=== PATIENT | female | born 1970 | race Caucasian/White ===

== ENCOUNTER 2020-10-04 23:12 | Emergency (ER) | payer BC ==
--- OUTSIDE RECORDS SUMMARY | 2020-10-04 23:15 | XMS REPORT | Continuity of Care Document ---
:1970 Author Organization Formerly [facility] Address [address] [place] [address] [address]. [address] [place] [address] Care Team Providers Name Role Phone Unavailable Unavailable Unavailable Problems This patient has no known problems. Allergies, Adverse Reactions, Alerts This patient has no known allergies or adverse reactions. Medications This patient has no known medications. Procedures This patient has no known procedures. Results This patient has no known results.
[2020-10-05] MEDS ORDERED: CEPHALEXIN 250 MG CAP ONE (00:27)
[2020-10-05] MEDS ORDERED: MUPIROCIN 2% OINT 22GM TUBE TOP ONE (00:27)
[2020-10-05] MEDS ORDERED: TETANUS & DIPHTHERIA TOX,ADULT 0.5 ML VIAL ONE (00:27)
--- NOTE | 2020-10-05 01:02 | ER ---
Nurse's Notes [facility] Name: Allyson Dailey Age: 49 yrs Sex: Female : 1970 Arrival Date: 10/04/2020 Time: 23:15 Bed 23 Private MD: Diagnosis: Syncope and collapse-NEAR;Puncture wound without foreign body of left wrist;Pain in left wrist Presentation: 10/04 23:23 Chief complaint: Spouse and/or significant other states: pt injured her wrist today and bb has passed out x 3 since then pt is diaphoretic and pale in triage spouse states he literally had to slap her to get her up to come into the ED. Coronavirus screen: At this time, the client does not indicate any symptoms associated with coronavirus-19. Ebola Screen: No symptoms or risks identified at this time. Initial Sepsis Screen: Does the patient meet any 2 criteria? No. Patient's initial sepsis screen is negative. Does the patient have a suspected source of infection? No. Patient's initial sepsis screen is negative. Risk Assessment: Do you want to hurt yourself or someone else? Patient reports no desire to harm self or others. Onset of symptoms was October 04, 2020. 23:23 Method Of Arrival: Wheelchair bb 23:23 Acuity: DOREEN 3 bb Triage Assessment: 23:26 General: Appears ill, Behavior is listless. Pain: Denies pain. Neuro: Level of bb Consciousness is awake, obeys commands, listless, Oriented to person, place, situation. Cardiovascular: No deficits noted. Respiratory: Respiratory effort is even, unlabored, Respiratory pattern is regular. GI: No signs and/or symptoms were reported involving the gastrointestinal system. Musculoskeletal: Circulation, motion, and sensation intact. 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 - Social history:: Smoking status: Patient denies any tobacco usage or history of. - Family history:: not pertinent. Screenin:30 Abuse screen: Denies threats or abuse. Nutritional screening: No deficits noted. bb Tuberculosis screening: No symptoms or risk factors identified. Fall Risk None identified. Assessment: 23:30 Reassessment: No changes from previously documented assessment. see triage assessment. bb 10/05 00:38 Reassessment: Patient is alert, oriented x 3, equal unlabored respirations, skin bb warm/dry/pink. Patient states feeling better. 01:45 Reassessment: Patient is alert, oriented x 3, equal unlabored respirations, skin bb warm/dry/pink. splint to left wrist in place. Pt states she is feeling better pt and family verbalized understanding of and agree to plan of care discharge instructions given pt assisted to exit via wheelchair by this RN. Vital Signs: 10/04 23:23 BP 118 / 72; Pulse 85; Resp 16 S; Temp 98.5(O); Pulse Ox 94% on R/A; Weight 86.18 kg bb (R); Height 5 ft. 6 in. (167.64 cm) (R); Pain 0/10; 10/05 01:12 BP 119 / 74 RA Supine (auto/lg); Pulse 92; Pulse Ox 97% ; ds4 01:15 BP 116 / 73 RA Sitting (auto/lg); Pulse 88; Pulse Ox 98% ; ds4 01:18 BP 129 / 81 RA Standing (auto/lg); Pulse 90; Pulse Ox 99% ; ds4 01:46 BP 119 / 92; Pulse 91; Resp 20 S; Pulse Ox 97% on R/A; bb 10/04 23:23 Body Mass Index 30.67 (86.18 kg, 167.64 cm) bb ED Course: 10/04 23:15 Patient arrived in ED. cf2 23:25 Triage completed. bb 23:26 Arm band placed on Patient placed in an exam room, on a stretcher, on compliance monitor, bb on pulse oximetry. Family accompanied patient. 23:30 No provider procedures requiring assistance completed. Patient did not have IV access bb during this emergency room visit. 23:31 Tomas Valencia MD is Attending Physician. [facility] 23:37 Placed in gown. Bed in low position. Call light in reach. Side rails up X2. mw2 10/05 00:25 Wound care: to puncture located on medial aspect of left wrist was cleaned with bb Hibiclens, dressed with band aid, bactroban, ice pack applied. 00:49 CT Head Brain wo Cont In Process Unspecified. EDMS 00:58 Wrist Left (3 View) XRAY In Process Unspecified. EDMS 01:01 Rishi Leo MD is Referral Physician. armen Administered Medications: 00:16 Drug: Tetanus-Diphtheria Toxoid Adult 0.5 ml {Equipment Scheduler: [employer]. Exp: bb 12/04/2021. Lot #: [id number]. } Route: IM; Site: right deltoid; 00:39 Follow up: Response: No adverse reaction bb 00:16 Drug: Bactroban Ointment 2 % 1 application Route: Topical; Site: affected area; bb 00:39 Follow up: Response: No adverse reaction bb 00:16 Drug: KeFLEX (cephalexin) 500 mg Route: PO; bb 00:39 Follow up: Response: No adverse reaction bb Outcome: 01:01 Discharge ordered by . armen 01:46 Discharged to home via wheelchair, with family. 01:46 Condition: stable 01:46 Discharge instructions given to patient, family, Instructed on discharge instructions, follow up and referral plans. medication usage, Demonstrated understanding of instructions, follow-up care, medications, splint care, Prescriptions given X 3. 01:47 Patient left the ED. bb Signatures: Dispatcher [employer] Tomas Moctezmua MD MD cha Ballard, Brenda, RN RN Kee Ferreira ds4 Carlos Iverson mw2 Chris Valverde 2
--- NOTE | 2020-10-05 01:02 | EDPHYS ---
Physician Documentation [facility] Name: Allyson Dailey Age: 49 yrs Sex: Female : 1970 Arrival Date: 10/04/2020 Time: 23:15 Bed 23 Private MD: ED Physician Tomas Valencia HPI: 10/04 23:56 This 49 yrs old Female presents to ER via Wheelchair with complaints of armen Passed Out Prior To Arrival. 23:56 The patient has experienced near-syncope, almost passed out. Onset: The armen symptoms/episode began/occurred just prior to arrival. Duration: The patient has had multiple episodes, that last 20 second(s). Context: occurred at home. Associated injury: Left upper extremity: decreased range of motion, pain. 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 - Social history:: Smoking status: Patient denies any tobacco usage or history of. - Family history:: not pertinent. ROS: 23:56 Constitutional: Negative for fever, chills, and weight loss, Eyes: Negative for injury, armen pain, redness, and discharge, ENT: Negative for injury, pain, and discharge, Neck: Negative for injury, pain, and swelling, Cardiovascular: Negative for chest pain, palpitations, and edema, Respiratory: Negative for shortness of breath, cough, wheezing, and pleuritic chest pain, Abdomen/GI: Negative for abdominal pain, nausea, vomiting, diarrhea, and constipation, Back: Negative for injury and pain, : Negative for injury, bleeding, discharge, and swelling, Skin: Negative for injury, rash, and discoloration, Neuro: Negative for headache, weakness, numbness, tingling, and seizure, Psych: Negative for depression, anxiety, suicide ideation, homicidal ideation, and hallucinations, Allergy/Immunology: Negative for hives, rash, and allergies, Endocrine: Negative for neck swelling, polydipsia, polyuria, polyphagia, and marked weight changes, Hematologic/Lymphatic: Negative for swollen nodes, abnormal bleeding, and unusual bruising. 23:56 MS/extremity: Positive for decreased range of motion, pain, swelling, of the medial aspect of left wrist. Exam: 23:56 Constitutional: This is a well developed, well nourished patient who is awake, alert, armen and in no acute distress. Head/Face: Normocephalic, atraumatic. Eyes: Pupils equal round and reactive to light, extra-ocular motions intact. Lids and lashes normal. Conjunctiva and sclera are non-icteric and not injected. Cornea within normal limits. Periorbital areas with no swelling, redness, or edema. ENT: Nares patent. No nasal discharge, no septal abnormalities noted. Tympanic membranes are normal and external auditory canals are clear. Oropharynx with no redness, swelling, or masses, exudates, or evidence of obstruction, uvula midline. Mucous membranes moist. Neck: Trachea midline, no thyromegaly or masses palpated, and no cervical lymphadenopathy. Supple, full range of motion without nuchal rigidity, or vertebral point tenderness. No Meningismus. Chest/axilla: Normal chest wall appearance and motion. Nontender with no deformity. No lesions are appreciated. Cardiovascular: Regular rate and rhythm with a normal S1 and S2. No gallops, murmurs, or rubs. Normal PMI, no JVD. No pulse deficits. Respiratory: Lungs have equal breath sounds bilaterally, clear to auscultation and percussion. No rales, rhonchi or wheezes noted. No increased work of breathing, no retractions or nasal flaring. Abdomen/GI: Soft, non-tender, with normal bowel sounds. No distension or tympany. No guarding or rebound. No evidence of tenderness throughout. Back: No spinal tenderness. No costovertebral tenderness. Full range of motion. Female : Normal external genitalia. Skin: Warm, dry with normal turgor. Normal color with no rashes, no lesions, and no evidence of cellulitis. Neuro: Awake and alert, GCS 15, oriented to person, place, time, and situation. Cranial nerves II-XII grossly intact. Motor strength 5/5 in all extremities. Sensory grossly intact. Cerebellar exam normal. Normal gait. Psych: Awake, alert, with orientation to person, place and time. Behavior, mood, and affect are within normal limits. 23:56 Musculoskeletal/extremity: ROM: limited active range of motion, limited passive range of motion, Circulation is intact in all extremities. Sensation intact. Compartment Syndrome exam of affected extremity: is normal. DVT Exam: No signs of deep vein thrombosis. no pain, no swelling, no tenderness, negative Homans' sign noted on exam, no appreciated bluish discoloration, no erythema, no increased warmth. 10/05 01:23 ECG was reviewed by the Attending Physician. [facility] Vital Signs: 10/04 23:23 BP 118 / 72; Pulse 85; Resp 16 S; Temp 98.5(O); Pulse Ox 94% on R/A; Weight 86.18 kg bb (R); Height 5 ft. 6 in. (167.64 cm) (R); Pain 0/10; 10/05 01:12 BP 119 / 74 RA Supine (auto/lg); Pulse 92; Pulse Ox 97% ; ds4 01:15 BP 116 / 73 RA Sitting (auto/lg); Pulse 88; Pulse Ox 98% ; ds4 01:18 BP 129 / 81 RA Standing (auto/lg); Pulse 90; Pulse Ox 99% ; ds4 01:46 BP 119 / 92; Pulse 91; Resp 20 S; Pulse Ox 97% on R/A; bb 10/04 23:23 Body Mass Index 30.67 (86.18 kg, 167.64 cm) bb MDM: 10/04 23:31 Patient medically screened. [facility] 23:59 Differential Diagnosis: cardiac arrhythmia, vasovagal episode. Data reviewed: vital [facility] signs, nurses notes, lab test result(s), EKG, radiologic studies, CT scan, plain films. Data interpreted: quality assurance monitor final: rate is 85 beats/min, rhythm is regular, Pulse oximetry: on room air is 94 %. Test interpretation: by ED physician or midlevel provider: ECG, plain radiologic studies. Counseling: I had a detailed discussion with the patient and/or guardian regarding: the historical points, exam findings, and any diagnostic results supporting the discharge/admit diagnosis, lab results, radiology results, the need for outpatient follow up, for definitive care, a family practitioner, a orthopedic surgeon. 10/04 23:56 Order name: Wrist Left (3 View) XRAY [facility] 10/05 00:00 Order name: CT Head Brain wo Cont [facility] 10/05 00:02 Order name: INCENTIVE SPIROMETRY [facility] 10/04 23:56 Order name: EKG; Complete Time: 23:57 [facility] 10/04 23:56 Order name: EKG - Nurse/Tech; Complete Time: 01:21 [facility] 10/04 23:56 Order name: Wound Care; Complete Time: 00:36 [facility] 10/04 23:56 Order name: Orthostatics; Complete Time: 01:21 [facility] 10/05 00:00 Order name: Ice pack; Complete Time: 00:37 [facility] 10/05 00:07 Order name: Splint - Ulnar Gutter: COCK UP/VELCRO armen EC/07 01:23 Rate is 87 beats/min. Rhythm is regular. QRS [place] is Normal. CA interval is normal. QRS armen interval is normal. QT interval is normal. No Q waves. T waves are Normal. No ST changes noted. Clinical impression: NSR w/ Non-specific ST/T Changes and No evidence of ischemia. Interpreted by me. Reviewed by me. Administered Medications: 00:16 Drug: Tetanus-Diphtheria Toxoid Adult 0.5 ml {Pricing Coordinator: [email or web address]. Exp: bb 12/04/2021. Lot #: [id number]. } Route: IM; Site: right deltoid; 00:39 Follow up: Response: No adverse reaction bb 00:16 Drug: Bactroban Ointment 2 % 1 application Route: Topical; Site: affected area; bb 00:39 Follow up: Response: No adverse reaction bb 00:16 Drug: KeFLEX (cephalexin) 500 mg Route: PO; bb 00:39 Follow up: Response: No adverse reaction bb Disposition: 10/05/20 01:01 Discharged to Home. Impression: Syncope and collapse - NEAR, Puncture wound without foreign body of left wrist, Pain in left wrist. - Condition is Stable. - Discharge Instructions: Joint Pain, Near-Syncope, Weakness, Cryotherapy, [id number], Near-Syncope, [id number], Weakness, [id number], Cryotherapy. - Prescriptions for Bactroban 2 % Topical Ointment - Apply to affected area 1 application by TOPICAL route every 12 hours; 15 gram. Ibuprofen 600 mg Oral Tablet - take 1 tablet by ORAL route every 6 hours As needed take with food; 30 tablet. Keflex 500 mg Oral Capsule - take 1 capsule by ORAL route every 6 hours for 10 days; 40 capsule. - Medication Reconciliation Form, Thank You Letter, Antibiotic Education, Prescription Opioid Use form. - Follow up: Private Physician; When: 2 - 3 days; Reason: Recheck today's complaints, Re-evaluation by your physician. Follow up: Rishi Leo; When: 2 - 3 days; Reason: Recheck today's complaints, Re-evaluation by your physician. - Problem is new. - Symptoms have improved. Signatures: Dispatcher [employer] EDTomas Hodges MD MD cha Ballard, Brenda, RN RN bb Corrections: (The following items were deleted from the chart) 01:47 01:01 10/05/2020 01:01 Discharged to Home. Impression: Syncope and collapse - NEAR; bb Puncture wound without foreign body of left wrist; Pain in left wrist. Condition is Stable. Discharge Instructions: Joint Pain, Near-Syncope, Weakness, Cryotherapy, [id number], Near-Syncope, [id number], Weakness, [id number], Cryotherapy. Prescriptions for Bactroban 2 % Topical Ointment - Apply to affected area 1 application by TOPICAL route every 12 hours; 15 gram, Ibuprofen 600 mg Oral Tablet - take 1 tablet by ORAL route every 6 hours As needed take with food; 30 tablet, Keflex 500 mg Oral Capsule - take 1 capsule by ORAL route every 6 hours for 10 days; 40 capsule. and Forms are Medication Reconciliation Form, Thank You Letter, Antibiotic Education, Prescription Opioid Use. Follow up: Private Physician; When: 2 - 3 days; Reason: Recheck today's complaints, Re-evaluation by your physician. Follow up: Rishi Leo; When: 2 - 3 days; Reason: Recheck today's complaints, Re-evaluation by your physician. Problem is new. Symptoms have improved. armen
[2020-10-05 02:59] VITALS: TEMP 98.5
[2020-10-05 03:05] VITALS: BP 119/92; O2SAT 97
--- NOTE | 2020-10-05 07:46 | RAD REPORT ---
EXAM DESCRIPTION: RAD - Wrist Left 3 View - 10/05/2020 12:58 am CLINICAL HISTORY: Left wrist pain status post injury FINDINGS: No fracture or dislocation is seen. If the patient continues to have symptoms to suggest an occult fracture then a followup plain film se mitchel in 7 days would be recommended
--- NOTE | 2020-10-05 12:46 | EKG ---
Test Date: 2020-10-05 Test Time: 01:08:08 Mechanical Cad Designer: SAMUEL MEASUREMENT RESULTS: Intervals: Rate: 87 MA: 180 QRSD: 86 QT: 362 QTc: 435 [place]: P: 55 MA: 180 QRS: 69 T: 39 INTERPRETIVE STATEMENTS: Normal sinus rhythm Cannot rule out Anterior infarct, age undetermined Abnormal ECG Compared to ECG 02/19/2013 16:27:21 Myocardial infarct finding now present T-wave abnormality no longer present Electronically Signed On 10-05-20 12:45:21 CDT by Isiah Goodman
--- NOTE | 2020-10-05 13:05 | RAD REPORT ---
EXAM DESCRIPTION: CT - Head Brain Wo Cont - 10/05/2020 6:58 am CLINICAL HISTORY: 49 years Female DIZZINESS TECHNIQUE: Axial noncontrast CT head with coronal and sagittal reformats. All CT scans at this [facility] it use dose modulation, iterative reconstruction, and/or weight based dosing when appropriate to red uce radiation dose to as low as reasonably achievable. COMPARISON: None. FINDINGS: Brain: Normal in morphology and attenuation. No intracranial hemorrhage, midline shift, ma ss or mass effect. No obvious large acute territorial infarction. Ventricles: No hydrocephalus. Orbits: Unremarkable. 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 Mastoid: Clear. Osseous: Focal exostosis in the inner cortex of the right frontal bone measuring 0.6 x 0.8 cm. No acu te fracture. Soft tissues: Unremarkable. IMPRESSION: No acute findings. Electronically signed by: Chad Mckeon MD 10/05/2020 12:58 AM CDT Due to temporary technical issues with the PACS/Fluency reporting system, reports are being signed by the in house radiologist without review as a courtesy to ensure prompt reporting. The interpreting r adiologist is fully responsible for the content of the report.
== END 2020-10-05 01:47 | disposition home or self-care (01) ==
LOC: ER 23:12
DX: S61.532A Puncture wound without foreign body of left wrist, initial encounter (principal); Z23 Encounter for immunization; Z88.1 Allergy status to other antibiotic agents
CPT/HCPCS: 70450; 90471; 90714; 93005; 99284